=== PATIENT | female | born 1940 | race Caucasian/White ===

== ENCOUNTER 2023-02-09 06:36 | Day surgery (SDC) | payer OTHER ==
[~2023-02-09] VITALS: Ht 154.9 cm; Wt 70.3 kg
[2023-02-09] MEDS ORDERED: PROPOFOL 200MG/ 20ML VIAL (DIPRIVAN) IV ONE ×3 (07:20→10:03)
[2023-02-09] MEDS ORDERED: fentaNYL CITRATE/PF 100 MCG/2 ML AMP ONE ×3 (07:20→10:03)
[2023-02-09] MEDS ORDERED: NS 1000 ML IV.SOLN IV ONE ×3 (07:20→10:03)
[2023-02-09] MEDS ORDERED: MIDAZOLAM HCL 2 MG/2 ML VIAL (VERSED) ONE ×3 (07:20→10:03)
[2023-02-09 07:31] VITALS: O2SAT 97
[2023-02-09] MEDS ORDERED: METOCLOPRAMIDE HCL 10 MG/2 ML VIAL IVP PRN (08:00)
[2023-02-09] MEDS ORDERED: ONDANSETRON HCL 4 MG/2 ML VIAL IVP PRN (08:00)
[2023-02-09] MEDS ORDERED: DEXAMETHASONE SOD PHOSPHATE 4 MG/ML VIAL ONE (08:01)
[2023-02-09] MEDS ORDERED: ONDANSETRON HCL 4 MG/2 ML VIAL ONE ×2 (08:01→10:03)
[2023-02-09] MEDS ORDERED: ePHEDrine sulfate 50 MG/ML VIAL ONE (10:03)
[2023-02-09 13:14] VITALS: BP_SYST 136; PULSE 66; RESP 16; TEMP 97
== END 2023-02-09 09:36 | disposition home or self-care (01) ==
LOC: SDS 06:36 → SMU 06:38 → SDS 09:36
PROVIDERS: ATTEND Internal Medicine Gastroenterology
DX: K74.60 Unspecified cirrhosis of liver (principal); I85.10 Secondary esophageal varices without bleeding; K29.70 Gastritis, unspecified, without bleeding; K44.9 Diaphragmatic hernia without obstruction or gangrene; I10 Essential (primary) hypertension; E11.9 Type 2 diabetes mellitus without complications; Z79.899 Other long term (current) drug therapy
CPT/HCPCS: 43235; 71045; 93005; J1100; J3465; J2405; J2704; J3010; J7030